=== PATIENT | male | born 1955 | race Caucasian/White ===

== ENCOUNTER 2017-01-13 07:21 | Day surgery (SDC) | payer OTHER ==
--- OUTSIDE RECORDS SUMMARY | 2017-01-13 07:24 | XMS REPORT | Continuity of Care Document ---
:1955 Author Organization [facility] [place] [place] [address] Care Team Providers Name Role Phone Nilson Nelson Primary Care Provider [phone] Source Comments This disclosure is being made pursuant to the to be program and maynot contain all information available regarding this patient.[facility] Active Allergies and Adverse Reactions Allergen Noted Date Severity Reactions Comments Atrovent 01/31/2015 Other (See Comments) Current Medications Be aware that medications may not be up to date as of this document. Alwaysverify current medications with the patient. Prescription Sig. Disp. Refills Start Date End Date Status Multiple Vitamin Take by mouth. Active (MULTIVITAMIN) capsule fish oil 1000 MG CAPS Take by mouth. Active amlodipine-benazepril 1 01/12/2015 Active (LOTREL) 10-20 MG per capsule traMADol (ULTRAM) 50 MG 0 11/18/2014 Active tablet TRAVATAN Z 0.004 % SOLN 11 10/31/2014 Active ophthalmic solution Active Problems Not on file Immunizations Name Dates Previously Given Next Due Influenza Split 07/25/2012 Social History Tobacco Use Types Packs/Day Years Used Date Current Every Day Smoker Smokeless Tobacco: Never Used Alcohol Use Drinks/Week oz/Week Comments No Alcoholic Drinks/day: ALCOHOL USE: NON-DRINKER Last Filed Vital Signs Vital Sign Reading Time Taken Blood Pressure 132/76 01/31/2015 3:13 PM CDT Pulse 64 01/31/2015 3:13 PM CDT Temperature - - Respiratory Rate 20 01/31/2015 3:13 PM CDT Height 1.759 m (5' 9.25") 01/31/2015 3:13 PM CDT Weight 113.944 kg (251 lb 3.2 oz) 01/31/2015 3:13 PM CDT Body Mass Index 36.83 01/31/2015 3:13 PM CDT Oxygen Saturation - - Plan of Care Health Maintenance Due Date Last Done Comments Hepatitis C Screening 1972 Tetanus/Pertussis (1 - Tdap) 1973 Colonoscopy 2004 Well Adult Visit 2004 Zoster Vaccine 60+ 2014 Influenza Immunization (#1) 2016 07/25/2012 Results from Last 3 Months Not on file
--- NOTE | 2017-01-13 08:03 | OR ---
Anesthesia Pre Procedure Eval Pre Procedure Evaluation: Last Vital Signs Temp 36.3 C L 01/13/17 07:30 Pulse 60 01/13/17 07:30 Resp 18 01/13/17 07:30 BP 113/76 01/13/17 07:30 Pulse Ox 96 01/13/17 07:30 PRE PROCEDURE EVALUATION:: DATE: 01/13/2017 TIME: 0800 INDICATIONS: Radicular low back pain. Status post lumbar surgery. PAST MEDICAL HISTORY: Patient had an epidural injection before back surgery. This was approximately 2 years ago. EXAM: Lungs clear and equal. Heart rate regular. Patient complains of low back pain radiating into his hips and into his legs bilaterally. He also complains of some pain on his right side just under his rib cage. ASSESSMENT OF MEDICAL STATUS: Procedure risks and benefits were explained to and accepted by the patient. No contraindication to epidural steroid injection. PLANNED PROCEDURE : Fluoroscopy-guided epidural steroid injection at L5-S1 Home Medications: HOME MEDICATIONS Multivitamins [Multivitamin Surekha] 1 cap PO DAILY 10/03/14 [Last Taken 08/04/16 ] Furosemide [Lasix] 40 mg PO DAILY 12/23/15 [Last Taken 08/04/16] Aspirin [Aspirin EC] 81 mg PO DAILY 01/03/17 [Last Taken Unknown] Benazepril HCl [Lotensin] 20 mg PO BID 01/03/17 [Last Taken Unknown] Cholecalciferol (Vitamin D3) [Vitamin D3] 5,000 unit PO DAILY 01/03/17 [Last Taken Unknown] Ranitidine HCl [Zantac] 300 mg PO HS 01/03/17 [Last Taken Unknown] Cyanocobalamin (Vitamin B-12) [Vitamin B-12] 500 mcg PO DAILY 01/13/17 [Last Taken Unknown] Furosemide 20 mg PO HS 01/13/17 [Last Taken Unknown] Spironolactone [Aldactone] 25 mg PO DAILY 01/13/17 [Last Taken Unknown]
[2017-01-13] MEDS ORDERED: LIDOCAINE HCL/PF 5 ML VIAL IJ ONE (08:25)
[2017-01-13] MEDS ORDERED: DEXAMETHASONE SOD PHOSPHATE 10 MG/ML VIAL IJ ONE (08:25)
[2017-01-13] MEDS ORDERED: IOPAMIDOL 20 ML VIAL IJ ONE (08:25)
--- NOTE | 2017-01-13 08:36 | OR ---
Anesthesia Procedure Note - Anesthesia Procedure Note Narrative: Vital Signs - Last Taken Temp 36.3 C L 01/13/17 07:30 Pulse 53 L 01/13/17 08:23 Resp 18 01/13/17 08:23 BP 132/91 01/13/17 08:23 Pulse Ox 93 01/13/17 08:23 O2 Oxygen Delivery Method Room Air 01/13/17 08:32 ANESTHESIA PROCEDURE NOTE Date of Procedure: 01/13/2017 Time of procedure: 814. Performed by: Uriel Crowley CRNA Automatic Packer Operator: None. Preprocedure diagnosis: Radicular low back pain. Spinal stenosis at L5-S1. Bilateral neural foraminal narrowing at L5-S1. Post procedure diagnosis: Same. Procedure: Epidural Steroid Injection at L5-S1. Indications: Radicular low back pain. Findings: See below. Details of the procedure: The patient was brought back to operating room #2. The patient was then placed in the prone position. Back was prepped with DuraPrep. Patient was then draped in sterile fashion. Lidocaine 1% was infiltrated to the skin and subcutaneous tissues at the level of the L5-S1 interspace. The epidural space was identified using a 20-gauge Tuohy needle with [id number] technique and fluoroscopic guidance. A total of 2 mL of Isovue 200 contrast dye was injected in first the AP and then lateral position. Dexamethasone 10 mg + 5 mL of 1% preservative-free lidocaine was administered to the epidural space after negative aspiration for blood and CSF. The Tuohy needle was removed intact. A Band-Aid was applied to the patient's back. The patient was then placed in a supine position for 5 minutes before returning to the ambulatory surgical unit. Total fluoroscopy time was 33.4 seconds. Total dose 24.2 m/gy. EBL: Minimal. Fluids: N/A. Specimen: N/A. Post procedure condition: The patient tolerated the procedure well. No complications were noted. Thank you for this consultation. Uriel Crowley CRNA
[2017-01-13 09:09] VITALS: BP 122/74
== END 2017-01-13 07:22 | disposition home or self-care (01) ==
LOC: AMB 07:21
PROVIDERS: ATTEND Orthopaedic Surgery
PROC: 3E0S3BZ Introduction of Anesthetic Agent into Epidural Space, Percutaneous Approach (ICD-10-PCS; 2017-01-13)
PROC: 3E0S33Z Introduction of Anti-inflammatory into Epidural Space, Percutaneous Approach (ICD-10-PCS; principal; 2017-01-13 08:00)
DX: M48.07 Spinal stenosis, lumbosacral region (principal); Z68.38 Body mass index [BMI] 38.0-38.9, adult

== ENCOUNTER 2017-05-29 08:12 | Day surgery (SDC) | payer OTHER ==
--- NOTE | 2017-05-29 08:41 | OR ---
Anesthesia Pre Procedure Eval Date of Service: 05/29/17 Pre Procedure Evaluation: Last Vital Signs Temp 36.4 C L 05/29/17 08:20 Pulse 58 L 05/29/17 08:20 Resp 20 05/29/17 08:20 BP 103/61 05/29/17 08:20 Pulse Ox 95 05/29/17 08:20 Anesthesia Pre Procedure Evaluation DATE: 05/29/2017 TIME: 8:30 AM INDICATIONS: Low back and bilateral radicular pain, status post back surgery, spinal stenosis and degenerative disc disease PAST MEDICAL HISTORY: Mr. Jacobo has had a long history of back pain for which she has received lumbar fusion with hardware at the L3 4 and L4 5 levels. He has had good improvement since the surgery however in recent years has found an increasing back and radicular pain on ambulation. He notices that he is not able to stand up straight as he use to and is having increasing difficulty in walking or standing for any period of time. He did have an epidural injection in December of this year which helped for a period of time however he is back to his previous level of pain which currently is at 8 out of 10. History of GERD: No History of smoking: Known History of sleep apnea: No EXAM: Heart regular; lungs clear ASSESSMENT OF MEDICAL STATUS: Appropriate candidate for epidural injection. Also discussed physical therapy for strengthening and posture. PLANNED PROCEDURE: Epidural steroid injection, lumbar. Home Medications: HOME MEDICATIONS Multivitamins [Multivitamin Surekha] 1 cap PO DAILY 10/03/14 [Last Taken 08/04/16 ] Furosemide [Lasix] 40 mg PO BID 12/23/15 [Last Taken 08/04/16] Aspirin [Aspirin EC] 81 mg PO DAILY 01/03/17 [Last Taken Unknown] Benazepril HCl [Lotensin] 20 mg PO BID 01/03/17 [Last Taken Unknown] Cholecalciferol (Vitamin D3) [Vitamin D3] 5,000 unit PO DAILY 01/03/17 [Last Taken Unknown] Ranitidine HCl [Zantac] 300 mg PO HS 01/03/17 [Last Taken Unknown] Potassium 99 mg PO DAILY 05/22/17 [Last Taken Unknown]
[2017-05-29] MEDS ORDERED: IOPAMIDOL 20 ML VIAL IJ ONE (09:00)
[2017-05-29] MEDS ORDERED: LIDOCAINE HCL/PF 5 ML VIAL IJ ONE (09:00)
[2017-05-29] MEDS ORDERED: DEXAMETHASONE SOD PHOSPHATE 10 MG/ML VIAL IJ ONE (09:00)
--- NOTE | 2017-05-29 09:14 | OR ---
Anesthesia Procedure Note - Anesthesia Procedure Note Date of Service: 05/29/17 Narrative: Vital Signs - Last Taken Temp 36.4 C L 05/29/17 08:20 Pulse 58 L 05/29/17 08:20 Resp 20 05/29/17 08:20 BP 103/61 05/29/17 08:20 Pulse Ox 95 05/29/17 08:20 05/29/17 09:11 ANESTHESIA PROCEDURE NOTE Date of Procedure: 05/29/2017 Time of procedure: 9 AM. Performed by: REDDY Pelletier CRNAP, MSN Bat Person: Ofelia Conn RN. Preprocedure diagnosis: Spinal stenosis, degenerative disc disease, low back and bilateral radicular pain. Post procedure diagnosis: Same. Procedure: Epidural Steroid Injection L5-S1. Indications: Low back and bilateral radicular pain. Findings: See below. Details of the procedure: After the MRI report and films were reviewed, the patient was interviewed where risks and the procedure were explained. The patient was then brought to [facility] and was placed in the prone position. The back was prepped with DuraPrep and draped in a sterile fashion. The lumbar area was identified under fluoroscopy and the L5-S1 space was localized with 1% lidocaine solution. The epidural space was identified using loss of resistance technique using a #20-gauge Touhy needle. 1 mL of Isovue was injected while the C-arm was positioned in the lateral orientation. The C-arm was then readjusted to an AP view and Isovue 200 1 milliliters was injected demonstrating a spread at the affected area. Dexamethasone 10mg and lidocaine 1 % 5 mL was injected, stylette was replaced and the epidural needle removed. A Band-Aid was then applied to the injection site, patient was placed in a supine position for 5 minutes then returned to ASU with good relief of pain, from a 8/ 10 to 0/10. EBL: None. Energy: 14.3 Seconds, 11.5 mGy Fluids: N/A. Specimen: N/A. Post procedure condition: The patient tolerated the procedure well. No complications were noted. Thank you for this consultation. Vimal Samuel CRNA, MSN, BUTTON CUTTING MACHINE OPERATOR
[2017-05-29 10:05] VITALS: BP 116/54
== END 2017-05-29 08:13 | disposition home or self-care (01) ==
LOC: AMB 08:12
PROVIDERS: ATTEND Orthopaedic Surgery
PROC: 3E0S3BZ Introduction of Anesthetic Agent into Epidural Space, Percutaneous Approach (ICD-10-PCS; 2017-05-29)
PROC: 3E0S33Z Introduction of Anti-inflammatory into Epidural Space, Percutaneous Approach (ICD-10-PCS; principal; 2017-05-29 08:45)
DX: M51.36 Other intervertebral disc degeneration, lumbar region (principal); M48.061 Spinal stenosis, lumbar region without neurogenic claudication; Z68.38 Body mass index [BMI] 38.0-38.9, adult

== ENCOUNTER 2017-08-11 09:45 | Day surgery (SDC) | payer OTHER ==
[~2017-08-11 09:45] MED LIST: RINGER'S SOLUTION,LACTATED 1,000 ML IV PRN
[2017-08-11] MEDS ORDERED: RINGER'S SOLUTION,LACTATED 1,000 ML IV ONE (10:17)
[2017-08-11] MEDS ORDERED: RINGER'S SOLUTION,LACTATED 1,000 ML IV PRN (11:25)
[2017-08-11 12:25] VITALS: BP 158/89
--- NOTE | 2017-08-11 15:25 | OR ---
Operative Report - Dictated Report Narrative: OPERATIVE REPORT DATE OF OPERATION: 08/11/2017 PREOPERATIVE DIAGNOSIS: No prior dedicated colon studies POSTOPERATIVE DIAGNOSIS: Diverticulosis OPERATION: Colonoscopy SURGEON: Bárbara Eid MD ANESTHESIA: DIVYA Crowley CRNA INDICATIONS FOR PROCEDURE: The patient is a 61-year-old male referred by Dr. Mccormack. He has had no previous dedicated colon studies. He is currently asymptomatic and there is no family history of colon cancer FINDINGS: Diverticulosis NARRATIVE OF PROCEDURE: The patient was identified in the holding area, and prior to the administration of anesthetic, a multidisciplinary timeout was observed. With the patient in the left lateral position and after the administration of intravenous sedation, the perineum was inspected. There was no evidence of pilonidal disease or skin breakdown. The external appearance of the anus was normal. Sphincter tone was good. The flexible fiberoptic colonoscope was inserted into the rectum which was insufflated with air. The rectal mucosa and submucosal vascular pattern appeared normal, the prep was seen to be complete. The scope was advanced through the sigmoid colon, which contained numerous non-impacted noninflamed diverticular openings. The scope was advanced up the descending colon, and around the splenic flexure where the triangular haustral architecture of the transverse colon was seen. The scope was advanced across the transverse colon, around the hepatic flexure to the cecum, where the confluence of tenia and the ileocecal valve were identified. The mucosa at this level appeared normal. The scope was then slowly withdrawn in a circular fashion so that all aspects of colonic mucosa were inspected. The colon was normal in course and caliber. The haustral architecture appeared well preserved throughout with no evidence of external compression. The mucosa and submucosal vascular pattern appeared normal, specifically there was no gross evidence to suggest colitis or inflammatory bowel disease and no AV malformations were seen. The diverticulosis was moderate in degree and confined primarily to the sigmoid colon. No polyps were encountered. The scope was gradually withdrawn to the level of the rectum. As much insufflated air as possible was removed. The scope was withdrawn from the patient and the procedure terminated. The patient tolerated the anesthetic and procedure well without complication and was transferred back to the ambulatory surgery area awake and in stable condition. The patient remained stable throughout a period of postoperative observation. He denied abdominal discomfort, was able to tolerate by mouth intake, and was up without assistance. I shared the operative findings with the patient and he was given copies of the photographs which appear in the medical record. He was discharged home with instructions not to engage in hazardous activity today, but may resume normal activity tomorrow, and advance diet as tolerated. He is to continue those medications as listed in the history and physical exam. RECOMMENDATION: Colon surveillance in 10 years depending upon findings and symptoms Reviewed and electronically signed
== END 2017-08-11 09:46 | disposition home or self-care (01) ==
LOC: AMB 09:45
PROVIDERS: ATTEND Surgery
PROC: 0DJD8ZZ Inspection of Lower Intestinal Tract, Via Natural or Artificial Opening Endoscopic (ICD-10-PCS; principal; 2017-08-11 11:00)
DX: Z12.11 Encounter for screening for malignant neoplasm of colon (principal); K57.30 Diverticulosis of large intestine without perforation or abscess without bleeding; I10 Essential (primary) hypertension; K21.9 Gastro-esophageal reflux disease without esophagitis; M51.36 Other intervertebral disc degeneration, lumbar region; E66.9 Obesity, unspecified; Z68.38 Body mass index [BMI] 38.0-38.9, adult; F17.200 Nicotine dependence, unspecified, uncomplicated